=== PATIENT | female | born 1955 | race Caucasian/White ===

== ENCOUNTER 2024-03-02 15:14 | Emergency (ER) | payer MEDICARE, OTHER, SELFPAY ==
[2024-03-02] VITALS (8 sets, daily range): BP systolic 127–164; BP diastolic 63–146; BMI 21.6
[2024-03-02 16:06] LABS: % Basophils 0.6 % (0-2); % Eosinophils 2.6 % (0-6); % Immature Granulocytes 0.2 % (0-0.5); % Monocytes 8.3 % (1.7-9.3); % Neutrophils 68.3 % (42.2-75.2); Absolute Eosinophils 0.2 10^3/uL (0-0.7); Absolute Lymphocytes 1.3 10^3/uL (1.2-3.4); Absolute Monocytes 0.5 10^3/uL (0.1-0.6); Absolute Neutrophils 4.4 10^3/uL (1.4-6.5); Hemoglobin 13.5 g/dL (12.0-16.0); Mean Corp Hgb Conc. 33.8 g/dL (33.0-37.0); Mean Corpuscular Hgb 30.8 pg (27.0-31.0); Mean Corpuscular Volume 91.1 fL (81.0-99.0); Mean Platelet Volume 9.9 fL (7.4-10.4); Nucleated Red Blood Cells % 0 %; Platelet Count 170 10^3/uL (130-400); Red Blood Cell Count 4.39 10^6/uL (4.20-5.40); Red Cell Dist. Width 12.2 % (11.5-14.5); White Blood Cell Count 6.5 10^3/uL (4.8-10.8)
[2024-03-02 16:24] LABS: ALT (SGPT) 17 U/L (0-35); AST (SGOT) 42 U/L (14-36); Albumin 4.3 g/dl (3.5-5.0); Alkaline Phosphatase 52 U/L (38-126); Blood Urea Nitrogen 11 mg/dl (7-17); Calcium 9.4 mg/dl (8.4-10.2); Carbon Dioxide 25 mmol/L (22-30); Chloride 100 mmol/L (98-107); Glucose 90 mg/dl (70-99); Potassium 4.2 mmol/L (3.5-5.1); Sodium 136 mmol/L (135-145); Total Bilirubin 1.1 mg/dl (0.2-1.3); eGFR > 60.00
--- NOTE | 2024-03-02 18:29 | ED.GENMED ---
History of Present Illness
General
Chief Complaint: Abdominal Pain
Source: patient
Exam Limitations: none
Time Seen by Provider: 03/02/24 17:55
Travel History
Have you had any contact with someone who has COVID-19?: No
Do you have any symptoms of coronavirus? Fever > 100 degrees, chills, cough, shortness of breath, sore throat, loss of taste or smell, muscle aches, or headache?: No
History of Present Illness
History of Present Illness:
This is a 68 year old female that comes in with c/o nausea and diarrhea. States that she started last Saturday. States that she was nauseated at first and thought it was food poisoning. States that it wasn't. States that on Saturday she spoke with
the PCP and she was told that this is most likely a viral syndrome as she started with diarrhea on Saturday night. States that this has continued and she as abd pain. State that she is nauseated with the diarrhea and has had a headache on and off.
Denies any fever, chills, chest pain, SOB, vomiting, diarrhea, urinary burning.
Past History
Past History
ED Past Medical History: Fibromyalgia, GERD (w/ bleeding ulcer), HTN, Hypothyroidism, Psychiatric (Anxiety), Other (esophageal varices, MVP, Cirrhosis of the liver, IBS, Buldging disc lower back. Arthritis. ) and Other (AVN B Hips, Chronic pain on
Oxys 5mg TID since 2016)
ED Past Surgical History: Gynecological (Partial hysterectomy) and Other (Esophageal banding, Carotid endarterectomy, )
Social History
Tobacco: Smoker
Alcohol: None
Drug: None
Personal:
Living: alone
Review of Systems
Review of Systems
All Other Systems: ROS reviewed and negative except as documented in HPI and ROS
Constitutional: Reports no symptoms; Denies fever or chills
EENT: Reports no symptoms
Respiratory: Reports no symptoms; Denies cough or trouble breathing
Cardiac: Reports no symptoms; Denies chest pain
ABD/GI: Reports abdominal pain, nausea and diarrhea; Denies vomiting
: Reports no symptoms; Denies dysuria, frequency or urgency
Musculoskeletal: Reports no symptoms
Skin: Reports no symptoms
Neurological: Reports headache (on and off); Denies dizzy
Psychiatric: Reports no symptoms
Phy Exam
General Physical Exam
General Presentation: no apparent distress
General age: appears stated age
General Skin: warm and dry
General Habitus: normal
General Mental: alert
General Hydration: appears well hydrated
ENT Exam
ENT Exam: TM's normal, pharynx normal and neck supple
Eye Exam
Eye Exam: EOMI
Cardiovascular Exam
Cardiovascular Exam: regular rate/rhythm, no edema and normal peripheral pulses
Pulmonary Exam
Pulmonary Exam: lungs clear, no respiratory distress, no rales, chest non tender, no crackles, no rhonchi, no wheezing and no cough
Gastrointestinal Exam
Gastrointestinal Exam: normal bowel sounds, soft, no organomegaly, no pulsatile mass, non distended and tender (Generalized abd tenderness with palpation)
Musculoskeletal Exam
Musculoskeletal Exam: full ROM and no edema
Skin Exam
Skin Exam: normal color, warm/dry, no rash and no petechia
Psychiatric Exam
Psychiatric Exam: normal mood/affect
Course
Orders/Labs/Results
Orders:
Orders
03/02/24 16:01
CMP [Comprehensive Metabolic Panel] Urgent
Complete Blood Count/With Diff Urgent
Lipase Urgent
Comment: ADD ON
03/02/24 17:51
Add On- LAB Urgent
Comments:: in lab
Tests Added?: lipase
03/02/24 18:29
CT Abd/pel W Iv And Oral Contr Urgent
Comment:
Reason For Exam: gENERALIZED ABD TENDERNESS WITH PALPATION
0.9% Sodium Chloride 1000 ml [Nss] 1,000 ml IV BOLUS
Iohexol [Omnipaque] See Protocol PO NOW STA
03/02/24 18:33
Ondansetron Injectable [Zofran] 4 mg IV NOW STA
03/02/24 22:34
Amoxicillin 875 mg/Clav 125 mg [Augmentin 875 mg/125 mg] 1 tablet PO NOW STA
Abnormal Lab Results
03/02/24
16:01
Lymphocytes % 20.0 L %
(20.5-51.1)
Creatinine 0.4 L mg/dL
(0.6-1.0)
AST 42 H U/L
(14-36)
03/02/24 16:01
03/02/24 16:01
AST slightly elevated.
Vital Signs
Initial and Last Documented VS:
Initial Vital Signs
Temp Pulse Resp BP
98.7 F 70 20 134/75
03/02/24 15:28 03/02/24 15:28 03/02/24 15:28 03/02/24 15:28
Last Documented Vital Signs
Temp Pulse Resp BP Pulse Ox
98.7 F 67 20 129/63 98
03/02/24 15:28 03/02/24 17:22 03/02/24 15:28 03/02/24 19:03 03/02/24 19:45
MDM/Problems Addressed
Differential Diagnosis Includes:
Enteritis, Colitis,
MDM/Problems Addressed:
This is a 68 year old female that comes in with c/o nausea and diarrhea since last Saturday.
Will get labs and CT abd/pelvis. Will give IV fluids and check urine
Back into see patient. Explained that she has Colitis. Will start patient on antibiotics and have her follow up with the Family doctor and her GI specialist for further evaluation. Patient to return with fever, increased or changing pain.
Chronic conditions affecting care:
NA
Acute Exacerbation and/or Progression of Chronic Illness:
NA
*Radiology
Radiology exam reviewed: radiology read reviewed (CT-Severe hepatic cirrhosis with portal hypertension, recanalized umbilical vein and varices. Cholelithiasis. Dilated common bile duct. No findings to suggest a distal filling defect. Diffuse wall
thickening of the colon most prominent in the ascending colon. Most consistent with Colitis. This could) and other (CT cont- could be infectious, inflammatory or chronic. There is mild diverticulosis. )
*Pulse Oximetry
Patient hypoxic: no
*EKG
Interpreted by ED Provider?: NA
Rate: EKG- N/A
*[employer] Interpretation
Rate: [employer]- N/A
*Critical Care Note
Total Time (30-74mins, 75-104mins- exclusive of procedures): Not Applicable
ED Attending Note
-
Portions of this chart may have been created with voice recognition software.� Occasional wrong word or��sound alike� substitutions may have occurred due to the inherent limitations of voice recognition software.
Discharge Plan
Departure
Patient Disposition: Home (Routine Discharge)
Date of Disposition: 03/02/24
Time of Disposition: 22:34
Patient with high blood pressure during this ER visit?: Yes
Condition: Good
Covid-19: Not Applicable
Discharge Problem:
Colitis
Instructions: Colitis (DC), BLOOD PRESSURE
Prescriptions:
New
amoxicillin-pot clavulanate 875-125 mg tablet
1 tab PO BID Qty: 19 0RF
No Action
Centrum Silver Women 1 EACH tablet
1 ea PO DAILY
cyanocobalamin (vitamin B-12) [Vitamin B-12] 2,500 mcg Tablet, Sublingual
2,500 mcg SUBLINGUAL DAILY
morphine 30 mg Tablet Extended Release
30 mg PO Q12H
levothyroxine [Levoxyl] 25 mcg Tablet
25 mcg PO DAILY
baclofen 10 mg Tablet
10 mg PO BIDPRN PRN (Reason: Back pain)
pantoprazole [Protonix] 40 mg Tablet,Delayed Release (Dr/Ec)
40 mg PO DAILY@1700
vitamin B complex Tablet
1 tab PO DAILY
pregabalin [Lyrica] 25 mg Capsule
25 mg PO HS
cholecalciferol (vitamin D3) [Vitamin D3] 25 mcg (1,000 unit) Tablet
25 mcg PO DAILY
Vyvanse 40 mg Capsule
40 mg PO DAILY
melatonin 10 mg Tablet
10 mg PO HS PRN (Reason: insomnia)
oxycodone 15 mg Tablet, Oral Only
15 mg PO 6XD
biotin 5,000 mcg Tablet,Chewable
2,500 mcg PO Q48H
collagen 1 SCOOP
1 dose PO DAILY
Medical Marijuana 1 DOSE
1 dose inhalation PRN PRN (Reason: Insomnia)
Rx Instructions:
Vapes
lactulose 10 gram/15 mL (15 mL) Solution
10 g PO Q48H
aspirin 81 mg tablet,delayed release (DR/EC)
81 mg PO DAILY Qty: 90 0RF
Referrals:
Alexandre Sampson MD [Family Provider] - Follow up in 5-7 days
Activity Restrictions/Additional Instructions:
As discussed, your blood work shows that your AST is very slightly elevated. Your Ct shows that you have Colitis. You have been given your first dose of antibiotic here and a prescription has been sent to your Pharmacy. Please stay away from milk
and milk products as long as you have diarrhea. Please increase your water intake to 8-8oz glasses daily. You may eat Chicken, rice and potatoes as these are easily digested. Bananas are also binding and will help with the diarrhea. Follow up with
the family doctor for recheck in about 5-7 days. You may want to also see your Gi specialist after you are feeling better for a Colonoscopy. IF YOU HAVE FEVER, INCREASED OR CHANGING PAIN, OR YOU HAVE ANY OTHER CONCERNS PLEASE RETURN TO THE EMERGENCY
ROOM.
Interventions
Interventions:
*Risk Screen - Suicide Last Done: 03/02/24 15:28
*General Assessment Last Done: 03/02/24 15:28
*Neglect/Abuse Screening Last Done: 03/02/24 15:28
ED- Fall Risk Assessment Last Done: 03/02/24 17:45
*ED COVID-19 Vaccine History Last Done: 03/02/24 17:45
NU-Zawuet-Uxxmqnvfno Assessment Last Done: 03/02/24 17:45
Discharge Date and Time
Print Language: SLOVENIAN
[2024-03-02 18:37] LABS: Lipase 33 U/L (23-300)
[2024-03-02] MEDS: OMNIPAQUE 50 ML PO (19:16)
[2024-03-02] MEDS: ZOFRAN 4 MG IV (19:17)
[2024-03-02] MEDS: NSS 1000 IV (19:18)
[2024-03-02] MEDS: AUGMENTIN 875 MG/125 MG 1 TABLET PO (22:51)
== END 2024-03-02 23:09 | disposition home or self-care (01) ==
LOC: EMR 15:14
PROVIDERS: Emergency Medicine; EMERGENCY PHYSICIAN Emergency Medicine; FAMILY PHYSICIAN Internal Medicine
DX: K52.9 Noninfective gastroenteritis and colitis, unspecified (principal); R51.9 Headache, unspecified; E03.9 Hypothyroidism, unspecified; I10 Essential (primary) hypertension; K21.9 Gastro-esophageal reflux disease without esophagitis; K76.6 Portal hypertension; K80.20 Calculus of gallbladder without cholecystitis without obstruction; K57.90 Diverticulosis of intestine, part unspecified, without perforation or abscess without bleeding; M79.7 Fibromyalgia; F41.9 Anxiety disorder, unspecified; I34.1 Nonrheumatic mitral (valve) prolapse; K74.60 Unspecified cirrhosis of liver; M19.90 Unspecified osteoarthritis, unspecified site; G89.29 Other chronic pain; F17.200 Nicotine dependence, unspecified, uncomplicated; Z79.891 Long term (current) use of opiate analgesic; Z88.2 Allergy status to sulfonamides; Z88.8 Allergy status to other drugs, medicaments and biological substances; Z79.82 Long term (current) use of aspirin
CPT/HCPCS: 99285; 96361; 96374; 74177; 80053; 83690; 85025; Q9967

== ENCOUNTER 2025-03-03 18:15 | Emergency (ER) | payer MEDICARE, OTHER, SELFPAY ==
[2025-03-03 18:18] VITALS: BP 148/92
[2025-03-03 18:47] VITALS: BP 158/83
[2025-03-03 19:00] VITALS: BP 138/75
[2025-03-03 19:01] VITALS: BMI 22.2
[2025-03-03 19:05] LABS: % Basophils 0.5 % (0-2); % Eosinophils 2.3 % (0-6); % Immature Granulocytes 0.3 % (0-0.5); % Monocytes 7.2 % (1.7-9.3); % Neutrophils 66.7 % (42.2-75.2); Absolute Eosinophils 0.2 10^3/uL (0-0.7); Absolute Lymphocytes 1.7 10^3/uL (1.2-3.4); Absolute Monocytes 0.5 10^3/uL (0.1-0.6); Absolute Neutrophils 4.9 10^3/uL (1.4-6.5); Hematocrit 38.6 % (37.0-47.0); Hemoglobin 13.6 g/dL (12.0-16.0); Mean Corp Hgb Conc. 35.2 g/dL (33.0-37.0); Mean Corpuscular Hgb 31.1 pg (27.0-31.0); Mean Corpuscular Volume 88.1 fL (81.0-99.0); Mean Platelet Volume 8.8 fL (7.4-10.4); Nucleated Red Blood Cells % 0 %; Platelet Count 256 10^3/uL (130-400); Red Blood Cell Count 4.38 10^6/uL (4.20-5.40); Red Cell Dist. Width 12.3 % (11.5-14.5); White Blood Cell Count 7.4 10^3/uL (4.8-10.8)
[2025-03-03 19:22] LABS: ALT (SGPT) 19 U/L (0-35); AST (SGOT) 29 U/L (14-36); Albumin 4.2 g/dl (3.5-5.0); Alkaline Phosphatase 56 U/L (38-126); Blood Urea Nitrogen 12 mg/dl (7-17); Calcium 9.1 mg/dl (8.4-10.2); Carbon Dioxide 27 mmol/L (22-30); Chloride 107 mmol/L (98-107); Estimated Creatinine Clearance 77 ml/min; Glucose 99 mg/dl (70-99); Potassium 3.9 mmol/L (3.5-5.1); Sodium 139 mmol/L (135-145); Total Bilirubin 0.5 mg/dl (0.2-1.3); Total Protein 7.2 g/dl (6.3-8.2); eGFR > 60.00
[2025-03-03 19:31] LABS: Urine Albumin 1+ (Neg - Trace); Urine Bilirubin Negative (Negative); Urine Character Clear (Clear); Urine Color Yellow; Urine Glucose Negative (Negative); Urine Ketone Negative (Negative); Urine Leukocyte 1+ (Negative); Urine Nitrite Negative (Negative); Urine Occult Blood 3+ (Negative); Urine Urobilinogen Negative (Neg - 1+)
[2025-03-03 19:54] LABS: Urine Red Blood Cell 16-20 /HPF (0-2); Urine White Cell 30-40 /HPF (0-5)
[2025-03-03 19:55] LABS: Urine Bacteria Moderate (Negative)
[2025-03-03 20:00] VITALS: BP 139/74
[2025-03-03] MEDS: ROXICODONE 15 MG PO (21:41)
--- NOTE | 2025-03-03 22:00 | ED.GENMED ---
History of Present Illness
General
Chief Complaint: Back Pain
Time Seen by Provider: 03/03/25 19:53
History of Present Illness
History of Present Illness:
69-year-old female presents emergency department for evaluation of intermittent hematuria, dysuria, and low back pain. Symptoms have been ongoing for several weeks but have been intermittent. She followed up with her urologist who has her
scheduled for an outpatient CT scan and cystoscopy. Denies any fevers or chills
Past History
Past History
ED Past Medical History: Fibromyalgia, GERD (w/ bleeding ulcer), HTN, Hypothyroidism, Psychiatric (Anxiety), Other (esophageal varices, MVP, Cirrhosis of the liver, IBS, Buldging disc lower back. Arthritis. ) and Other (AVN B Hips, Chronic pain on
Oxys 5mg TID since 2016)
ED Past Surgical History: Gynecological (Partial hysterectomy) and Other (Esophageal banding, Carotid endarterectomy, )
Social History
Tobacco: Smoker
Alcohol: None
Drug: None
Personal:
Living: alone
Review of Systems
Review of Systems
Allergies reviewed?: Yes
All Other Systems: ROS reviewed and negative except as documented in HPI and ROS
Phy Exam
Physical Exam
Physical Exam:
GEN: Well appearing, NAD, WDWN
HEENT: Oral mucosa moist, no scleral icterus
Cardiac: Regular rate
Lung: No respiratory distress, no tachypnea
Abdomen: Soft, mild suprapubic tenderness
MSK: No gross deformity or injuries
Skin: Good color, no pallor or jaundice, no rashes
Neuro: AO x3, moves all extremities freely
Psych: Calm, cooperative
Course
Orders/Labs/Results
Orders:
Orders
03/03/25 18:59
Complete Blood Count/With Diff Urgent
Comprehensive Metabolic Panel Urgent
03/03/25 19:21
Urinalysis Reflex To Culture Urgent
Date Specimen was Collected: 03/03/25
Time Specimen was Collected: 18:51
Urine Microscopic Reflex Cult Urgent
Urine Culture Urgent
SKY Source: U
Specimen Description:
Date Specimen was Collected: 03/03/25
Time Specimen was Collected: 18:51
03/03/25 20:09
CT Abd/Pel (IV only)-DH only Urgent
Comment:
Reason For Exam: hematuria/low back pain
03/03/25 21:38
Oxycodone [Roxicodone] 15 mg PO NOW STA
03/03/25 21:39
Oxycodone [Roxicodone] 15 mg .ROUTE .STK-MED ONE
03/03/25 21:58
CefTRIAXone [Rocephin] 1,000 mg IV NOW STA
03/03/25 22:04
Sterile Water [Sterile Water For Injection] 10 ml .ROUTE .STK-MED ONE
Abnormal Lab Results
03/03/25 03/03/25
18:59 19:21
MCH 31.1 H pg
(27.0-31.0)
Creatinine 0.5 L mg/dL
(0.6-1.0)
Ur Occult Blood Reflex 3+ A
(Negative)
Leukocyte Esterase Rfl 1+ A
(Negative)
Urine RBC 16-20 A /HPF
(0-2)
Urine WBC (Reflex) 30-40 A /HPF
(0-5)
Urine Bacteria (Reflex) Moderate A
(Negative)
Urine Albumin (Reflex) 1+ A
(Neg - Trace)
03/03/25 18:59
03/03/25 18:59
Vital Signs
Initial and Last Documented VS:
Initial Vital Signs
Temp Pulse Resp BP Pulse Ox
98.4 F 91 18 148/92 98
03/03/25 18:18 03/03/25 18:18 03/03/25 18:18 03/03/25 18:18 03/03/25 18:18
Last Documented Vital Signs
Temp Pulse Resp BP Pulse Ox
98 F 93 18 139/74 97
03/03/25 18:52 03/03/25 22:16 03/03/25 22:16 03/03/25 20:00 03/03/25 22:16
MDM/Problems Addressed
MDM/Problems Addressed:
Labs reassuring however urinalysis is highly suggestive of UTI, imaging supportive of cystitis with no evidence for urinary obstruction. Will start antibiotics and recommend she continue with plan for outpatient cystoscopy
*Critical Care Note
Total Time (30-74mins, 75-104mins- exclusive of procedures): Not Applicable
ED Attending Note
-
Portions of this chart may have been created with voice recognition software.� Occasional wrong word or��sound alike� substitutions may have occurred due to the inherent limitations of voice recognition software.
Discharge Plan
Departure
Patient Disposition: Home (Routine Discharge)
Date of Disposition: 03/03/25
Time of Disposition: 22:00
Patient with high blood pressure during this ER visit?: No
Discharge Problem:
Urinary tract infection
Instructions: Urinary tract infections in adults
Prescriptions:
New
cefdinir 300 mg capsule
300 mg PO BID Qty: 10 0RF
No Action
Centrum Silver Women 1 EACH tablet
1 ea PO DAILY
cyanocobalamin (vitamin B-12) [Vitamin B-12] 2,500 mcg Tablet, Sublingual
2,500 mcg SUBLINGUAL DAILY
morphine 30 mg Tablet Extended Release
30 mg PO Q12H
levothyroxine [Levoxyl] 25 mcg Tablet
25 mcg PO DAILY
baclofen 10 mg Tablet
10 mg PO BIDPRN PRN (Reason: Back pain)
pantoprazole [Protonix] 40 mg Tablet,Delayed Release (Dr/Ec)
40 mg PO DAILY@1700
vitamin B complex Tablet
1 tab PO DAILY
pregabalin [Lyrica] 25 mg Capsule
25 mg PO HS
cholecalciferol (vitamin D3) [Vitamin D3] 25 mcg (1,000 unit) Tablet
25 mcg PO DAILY
Vyvanse 40 mg Capsule
40 mg PO DAILY
melatonin 10 mg Tablet
10 mg PO HS PRN (Reason: insomnia)
oxycodone 15 mg Tablet, Oral Only
15 mg PO 6XD
biotin 5,000 mcg Tablet,Chewable
2,500 mcg PO Q48H
collagen 1 SCOOP
1 dose PO DAILY
Medical Marijuana 1 DOSE
1 dose inhalation PRN PRN (Reason: Insomnia)
Rx Instructions:
Vapes
lactulose 10 gram/15 mL (15 mL) Solution
10 g PO Q48H
aspirin 81 mg tablet,delayed release (DR/EC)
81 mg PO DAILY Qty: 90 0RF
amoxicillin-pot clavulanate 875-125 mg tablet
1 tab PO BID Qty: 19 0RF
Referrals:
Alexandre Sampson MD [Family Provider] -
Interventions
Interventions:
*Risk Screen - Suicide Last Done: 03/03/25 18:19
*General Assessment Last Done: 03/03/25 18:19
*Neglect/Abuse Screening Last Done: 03/03/25 18:19
*ED- Fall Risk Assessment Last Done: 03/03/25 22:18
*ED COVID-19 Vaccine History Last Done: 03/03/25 18:41
*Nursing Disposition Last Done: 03/03/25 22:18
ED-Musculoskeletal Assessment Last Done: 03/03/25 19:03
Discharge Date and Time
Discharge Date/Time: 03/03/25 22:34
Print Language: ESTONIAN
[2025-03-03] MEDS: ROCEPHIN 1000 MG IV (22:08)
== END 2025-03-03 22:34 | disposition home or self-care (01) ==
LOC: EMR 18:15
PROVIDERS: Emergency Medicine; EMERGENCY PHYSICIAN Emergency Medicine; FAMILY PHYSICIAN Internal Medicine
DX: N39.0 Urinary tract infection, site not specified (principal); M54.50 Low back pain, unspecified; N30.91 Cystitis, unspecified with hematuria; E03.9 Hypothyroidism, unspecified; I10 Essential (primary) hypertension; M79.7 Fibromyalgia; K21.9 Gastro-esophageal reflux disease without esophagitis; K74.60 Unspecified cirrhosis of liver; F41.9 Anxiety disorder, unspecified; I34.1 Nonrheumatic mitral (valve) prolapse; K58.9 Irritable bowel syndrome, unspecified; I85.10 Secondary esophageal varices without bleeding; M19.90 Unspecified osteoarthritis, unspecified site; G89.29 Other chronic pain; F17.200 Nicotine dependence, unspecified, uncomplicated; Z79.891 Long term (current) use of opiate analgesic; Z88.2 Allergy status to sulfonamides; Z88.8 Allergy status to other drugs, medicaments and biological substances; Z79.82 Long term (current) use of aspirin
CPT/HCPCS: 99284; 96374; 51798; 74177; 80053; 81003; 81015; 85025; 87086; Q9967